=== PATIENT | male | born 1975 | race Caucasian/White ===

== ENCOUNTER 2017-05-10 10:53 | Emergency (ER) | payer SELFPAY ==
[2017-05-10 11:08] VITALS: BP 144/101; PULSE 89; TEMP 98.1; BMI 23.6
[2017-05-10] MEDS ORDERED: KETOROLAC TROMETHAMINE 30 MG/1 ML VIAL IVPUSH ONE (11:09)
[2017-05-10] MEDS ORDERED: ONDANSETRON 4 MG/2 ML VIAL IVPB ONE (11:09)
[2017-05-10] MEDS ORDERED: SODIUM CHLORIDE 1,000 ML IV STA (11:09)
[2017-05-10] MEDS ORDERED: DEXAMETHASONE SOD PHOSPHATE 10 MG/1 ML VIAL IVPUSH ONE (11:09)
--- NOTE | 2017-05-10 11:14 | PDOC ---
History of Present Illness - General Chief Complaint: Migraine Headache Stated Complaint: MIGRAINE Time Seen by Provider: 05/10/17 10:56 History Source: Patient Exam Limitations: No Limitations - History of Present Illness Initial Comments: 05/10/17 11:11 42 y/o male who suffers from migraine headaches 3-4x/day a year has seen a Neurologist in the past for Botox injections which did not work. Pain started this morning around 5 am. Denies neck pain, fever, fall or blurred vision. This feels like his typical migraines, it is not the worse headache of his life. No incontinence or numbness or weakness. Took Imitrex with no relief and two Benadryl. Timing/Duration: reports: 4-6 hours Severity: Yes: moderate Past History - Past Medical History Allergies/Adverse Reactions: Allergies Allergy/AdvReac Type Severity Reaction Status Date / Time prochlorperazine edisylate Allergy Verified 03/09/16 15:23 [From Compazine] prochlorperazine maleate Allergy Verified 03/09/16 15:23 [From Compazine] Home Medications: Ambulatory Orders Sumatriptan Succinate [Imitrex -] 100 mg PO ASDIR 06/27/14 Diphenhydramine [Benadryl -] 50 mg PO TID PRN #20 capsule 07/10/15 Alprazolam [Xanax] 0.5 mg PO BID PRN #4 tablet MDD 2 tabs 08/04/15 Codeine/Butalbital/ASA/Caffein [Fiorinal with Codeine #3 Cap] 1 each PO BID #6 capsule MDD 2 05/10/17 Codeine/Butalbital/ASA/Caffein [Fiorinal with Codeine #3 Cap] 1 each PO BID #6 capsule MDD 2 05/10/17 COPD: No Other medical history: MIGRAINE - Suicide/Smoking/Psychosocial Hx Smoking Status: Yes Smoking History: Former smoker Have you smoked in the past 12 months: No Number of Cigarettes Smoked Daily: 0 If you are a former smoker, when did you quit?: 2010 Information on smoking cessation initiated: No Hx Alcohol Use: No Drug/Substance Use Hx: Yes Substance Use Type: Alcohol, Cocaine, Prescribed, Tranquilizers Review of Systems - Review of Systems Able to Perform ROS?: Yes Is the patient limited Italian proficient: No Constitutional: No: Chills, Fever, Weakness HEENTM: No: Eye Pain, Blurred Vision Respiratory: No: Cough, Shortness of Breath Cardiac (ROS): No: Chest Pain ABD/GI: No: Nausea, Vomiting Musculoskeletal: No: Back Pain Neurological: Yes: Headache. No: Numbness, Paresthesia All Other Systems: Reviewed and Negative *Physical Exam - Vital Signs Last Vital Signs Temp Pulse Resp BP Pulse Ox 98.1 F 89 16 144/101 99 05/10/17 10:54 05/10/17 10:54 05/10/17 10:54 05/10/17 10:54 05/10/17 10:54 - Physical Exam General Appearance: Yes: Nourished, Appropriately Dressed, Mild Distress HEENT: positive: EOMI, KAVYA, Normal ENT Inspection, Normal Voice, Pharynx Normal Neck: positive: Trachea midline, Normal Thyroid, Supple. negative: Tender, Rigid, Carotid bruit Respiratory/Chest: positive: Lungs Clear, Normal Breath Sounds. negative: Chest Tender, Respiratory Distress Cardiovascular: positive: Regular Rhythm, Regular Rate, S1, S2. negative: Edema , JVD, Murmur Vascular Pulses: Femoral (R): 4+, Femoral (L): 4+, Carotid (R): 4+, Carotid (L) : 4+, Dorsalis-Pedis (R): 4+, Doralis-Pedis (L): 4+ Gastrointestinal/Abdominal: positive: Normal Bowel Sounds, Flat, Soft. negative : Tender, Organomegaly, Pulsatile Mass Lymphatic: negative: Adenopathy, Tenderness, Other Musculoskeletal: positive: Normal Inspection. negative: CVA Tenderness Extremity: positive: Normal Capillary Refill, Normal Inspection, Normal Range of Motion Integumentary: positive: Normal Color, Dry, Warm Neurologic: positive: communication electronic technician II-XII NML intact, Fully Oriented, Alert, Normal Mood/ Affect, Normal Response, Motor Strength 5/5 (strength 5+/5 b/l in UE and LE, no focal deficits noted, no menigingeal sign, neg Brudinsky and Kernig's sign) Progress Note - Progress Note Progress Note: Pt appears to have a migraine, will treat with IVF and medications. Pt is in agreement with plan Pt is feeling much better, headache has resolved Advised follow up with his Neurologist If worsen return to ER *DC/Admit/Observation/Transfer Diagnosis at time of Disposition: Migraine Qualifiers: Migraine type: unspecified Status migrainosus presence: with status migrainosus Intractability: not intractable Qualified Code(s): G43.901 - Migraine, unspecified, not intractable, with status migrainosus - Discharge Dispostion Disposition: HOME Condition at time of disposition: Good Admit: No - Referrals Referrals: Erci Willoughby [Primary Care Provider] - - Patient Instructions Printed Discharge Instructions: DI for Migraine Additional Instructions: Fiorinal/codeine 1 tab 2x/day as needed Fluids, rest, Motrin Follow up with Neurologist If worsen return to ER - Post Discharge Activity
[2017-05-10] MEDS ORDERED: ONDANSETRON 4 MG/2 ML VIAL ONE (11:38)
[2017-05-10] MEDS ORDERED: KETOROLAC TROMETHAMINE 30 MG/1 ML VIAL ONE (11:38)
[2017-05-10] MEDS ORDERED: DEXAMETHASONE SOD PHOSPHATE 10 MG/1 ML VIAL ONE (11:38)
[2017-05-10] MEDS ORDERED: HYDROmorphone HCL CARPU-JECT 1 MG/1 ML DISP.SYRIN IVPUSH ONE (12:34)
[2017-05-10] MEDS ORDERED: HYDROmorphone HCL CARPU-JECT 1 MG/1 ML DISP.SYRIN ONE (12:37)
== END 2017-05-10 13:38 | disposition home or self-care (01) ==
LOC: FER 10:53
PROC: 3E033NZ Introduction of Analgesics, Hypnotics, Sedatives into Peripheral Vein, Percutaneous Approach (ICD-10-PCS; principal; 2017-05-10)
PROC: 3E0333Z Introduction of Anti-inflammatory into Peripheral Vein, Percutaneous Approach (ICD-10-PCS; 2017-05-10)
PROC: 3E033GC Introduction of Other Therapeutic Substance into Peripheral Vein, Percutaneous Approach (ICD-10-PCS; 2017-05-10)
PROC: 3E0337Z Introduction of Electrolytic and Water Balance Substance into Peripheral Vein, Percutaneous Approach (ICD-10-PCS; 2017-05-10)
DX: G43.901 Migraine, unspecified, not intractable, with status migrainosus (principal)
CPT/HCPCS: 99282-25; J1100

== ENCOUNTER 2017-06-24 13:35 | Emergency (ER) | payer SELFPAY ==
--- NOTE | 2017-06-24 13:46 | PDOC ---
History of Present Illness - General History Source: Patient Exam Limitations: No Limitations - History of Present Illness Initial Comments: The patient is a 42 years old male with past medical history of chronic migraines, is present at the ED complaining of an episode of migraine since 7am. The patient reports similar episodes of migraines in the past with nothing unusual in the quality presented today. 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 The patient reports the past episodes were treated with triptan but denies taking any medication today. The patient reports symptoms of nausea, tingling of fingers and lips. The patient reports dehydration even after drinking water. Social History: the patient denies smoking, use of alcohol. The patient reports he did drugs several years ago but none recently. 06/24/17 15:12 <Gem Jorgensen - Last Filed: 06/24/17 16:38> <Cornell Fulton - Last Filed: 06/24/17 18:10> - General Chief Complaint: Pain Stated Complaint: SEVERE MIGRAINE HEADACHE Time Seen by Provider: 06/24/17 13:45 Past History <Gem Jorgensen - Last Filed: 06/24/17 16:38> - Past Medical History COPD: No - Suicide/Smoking/Psychosocial Hx Smoking Status: Yes Smoking History: Former smoker Have you smoked in the past 12 months: No Number of Cigarettes Smoked Daily: 0 If you are a former smoker, when did you quit?: 2010 Hx Alcohol Use: No Drug/Substance Use Hx: Yes Substance Use Type: Alcohol, Cocaine, Prescribed, Tranquilizers <Cornell Fulton - Last Filed: 06/24/17 18:10> - Past Medical History Allergies/Adverse Reactions: Allergies Allergy/AdvReac Type Severity Reaction Status Date / Time prochlorperazine edisylate Allergy Severe Verified 06/24/17 13:38 [From Compazine] prochlorperazine maleate Allergy Intermediate Verified 06/24/17 13:38 [From Compazine] Home Medications: Ambulatory Orders Acetaminophen/Caffeine/Butalb [Fioricet -] 1 tab PO Q6H #14 tablet MDD 3 Methocarbamol [Robaxin -] 750 mg PO Q8H #20 tablet 06/24/17 Sumatriptan Succinate 100 mg PO PRN 06/24/17 Review of Systems - Review of Systems Able to Perform ROS?: Yes Comments:: 06/24/17 15:12 Absent: fever, chills, diaphoresis, generalized weakness, malaise, loss of appetite HEENT: (+) headache Absent: rhinorrhea, nasal congestion, throat pain, throat swelling, difficulty swallowing, mouth swelling, ear pain, eye pain, visual Changes CARDIOVASCULAR: Absent: chest pain, syncope, palpitations, irregular heart rate, lightheadedness , peripheral edema RESPIRATORY: Absent: cough, shortness of breath, dyspnea with exertion, orthopnea, wheezing, stridor, hemoptysis GASTROINTESTINAL: Absent: abdominal pain, abdominal distension, nausea, vomiting, diarrhea, constipation, melena, hematochezia GENITOURINARY: Absent: dysuria, frequency, urgency, hesitancy, hematuria, flank pain, genital pain MUSCULOSKELETAL: Absent: myalgia, arthralgia, joint swelling SKIN: Absent: rash, itching, pallor HEMATOLOGIC/IMMUNOLOGIC: Absent: easy bleeding, easy bruising, lymphadenopathy, frequent infections ENDOCRINE: Absent: unexplained weight gain, unexplained weight loss, heat intolerance, cold intolerance NEUROLOGIC: (+) headache, slight tremors Absent:, focal weakness or paresthesias, dizziness, unsteady gait, seizure, mental status changes, bladder or bowel incontinence PSYCHIATRIC: Absent: anxiety, depression, suicidal or homicidal ideation, hallucinations. <Gem Jorgensen - Last Filed: 06/24/17 16:38> *Physical Exam - Vital Signs Last Vital Signs Temp Pulse Resp BP Pulse Ox 98.7 F 83 24 133/103 100 06/24/17 13:37 06/24/17 13:37 06/24/17 13:37 06/24/17 13:37 06/24/17 13:37 - Physical Exam Comments: GENERAL: Well developed, well nourished. Awake and alert. Mild uncomfortable. HEENT: Normocephalic, atraumatic. PERRLA, EOMI. No conjunctival pallor. Sclera are non- icteric. Moist mucous membranes. Oropharynx is clear. NECK: Supple. Flexible Full ROM. No JVD. Carotid pulses 2+ and symmetric, without bruits. No thyromegaly. No lymphadenopathy. CARDIOVASCULAR: Regular rate and rhythm. No murmurs, rubs, or gallops. Distal pulses are 2+ and symmetric. PULMONARY: No evidence of respiratory distress. Lungs clear to auscultation bilaterally. No wheezing, rales or rhonchi. ABDOMINAL: Soft. Non-tender. Non-distended. No rebound or guarding. No organomegaly. Normoactive bowel sounds. MUSCULOSKELETAL Normal range of motion at all joints. No bony deformities or tenderness. No CVA tenderness. EXTREMITIES: (+) Mild muscle spasm No cyanosis. No clubbing. No edema. No calf tenderness. SKIN: Warm and dry. Normal capillary refill. No rashes. No jaundice. 06/24/17 16:38 <Gem Jorgensen - Last Filed: 06/24/17 16:38> ED Treatment Course - Medications Given in the ED: ED Medications Discontinued Medications Generic Name Dose Route Start Last Admin Trade Name Freq PRN Reason Stop Dose Admin Diphenhydramine HCl 25 mg 06/24/17 14:28 06/24/17 14:51 Benadryl Injection - IVPUSH 06/24/17 14:29 25 mg ONCE ONE Administration Ketorolac Tromethamine 30 mg 06/24/17 14:29 06/24/17 14:54 Toradol Injection - IVPUSH 06/24/17 14:30 30 mg ONCE ONE Administration <Gem Jorgensen - Last Filed: 06/24/17 16:38> Medical Decision Making - Medical Decision Making The patient was observed hour by hour for the past 3 hours. He has improved, the pounding in the head has gone, muscle spasm has improved. The patient reports he still feels dehydrated. 06/24/17 16:40 <Gem Jorgensen - Last Filed: 06/24/17 16:38> *DC/Admit/Observation/Transfer - Attestations Scribe Attestion: 06/24/17 16:42 Documentation prepared by Gem Jorgensen, acting as medical transcriptionist for Cornell Fulton MD. <Gem Jorgensen - Last Filed: 06/24/17 16:38> - Discharge Dispostion Admit: No <Cornell Fulton - Last Filed: 06/24/17 18:10> Diagnosis at time of Disposition: Migraine Qualifiers: Migraine type: unspecified Status migrainosus presence: without status migrainosus Intractability: not intractable Qualified Code(s): G43.909 - Migraine, unspecified, not intractable, without status migrainosus - Discharge Dispostion Disposition: HOME Condition at time of disposition: Improved - Prescriptions Prescriptions: Acetaminophen/Caffeine/Butalb [Fioricet -] 1 tab PO Q6H #14 tablet MDD 3 Methocarbamol [Robaxin -] 750 mg PO Q8H #20 tablet - Patient Instructions Printed Discharge Instructions: Tension Headache Additional Instructions: Follow up with your doctor in the [place]
[2017-06-24 13:48] VITALS: TEMP 98.7; BMI 27.1
[2017-06-24] MEDS ORDERED: KETOROLAC TROMETHAMINE 30 MG/1 ML VIAL IVPUSH ONE (14:29)
[2017-06-24] MEDS ORDERED: SODIUM CHLORIDE 1,000 ML IV STA ×2 (14:29→17:08)
[2017-06-24] MEDS ORDERED: KETOROLAC TROMETHAMINE 30 MG/1 ML VIAL ONE (14:39)
[2017-06-24] MEDS ORDERED: CYCLOBENZAPRINE HCL 10 MG TABLET (FP) PO ONE (15:46)
[2017-06-24] MEDS ORDERED: CYCLOBENZAPRINE HCL 10 MG TABLET (FP) ONE (15:49)
[2017-06-24] MEDS ORDERED: ONDANSETRON 4 MG/2 ML VIAL IVPUSH ONE (16:40)
[2017-06-24] MEDS ORDERED: ACETAMINOPHEN 1000 MG/100 ML VIAL (NON FORMULARY) IVPB ONE (16:40)
[2017-06-24] MEDS ORDERED: ONDANSETRON 4 MG/2 ML VIAL ONE (17:04)
[2017-06-24] MEDS ORDERED: ACETAMINOPHEN INJECTION 100 ML IVPB ONE (17:04)
[2017-06-24 18:25] VITALS: BP 131/91; PULSE 64
== END 2017-06-24 18:29 | disposition home or self-care (01) ==
LOC: FER 13:35
PROC: 3E033NZ Introduction of Analgesics, Hypnotics, Sedatives into Peripheral Vein, Percutaneous Approach (ICD-10-PCS; principal; 2017-06-24)
PROC: 3E033GC Introduction of Other Therapeutic Substance into Peripheral Vein, Percutaneous Approach (ICD-10-PCS; 2017-06-24)
PROC: 3E0333Z Introduction of Anti-inflammatory into Peripheral Vein, Percutaneous Approach (ICD-10-PCS; 2017-06-24)
PROC: 3E0337Z Introduction of Electrolytic and Water Balance Substance into Peripheral Vein, Percutaneous Approach (ICD-10-PCS; 2017-06-24)
DX: G43.909 Migraine, unspecified, not intractable, without status migrainosus (principal); Z87.891 Personal history of nicotine dependence
CPT/HCPCS: 99282-25; J0131; J7030

== ENCOUNTER 2018-01-05 04:47 | Emergency (ER) | payer SELFPAY ==
[2018-01-05] MEDS ORDERED: ONDANSETRON *ODT* 4 MG TABLET SL ONE (05:01)
[2018-01-05] MEDS ORDERED: KETOROLAC TROMETHAMINE 60 MG/2 ML VIAL IM ONE (05:01)
--- NOTE | 2018-01-05 05:01 | PDOC ---
History of Present Illness - General Chief Complaint: Migraine Headache Stated Complaint: HEADACHE History Source: Patient Exam Limitations: No Limitations - History of Present Illness Initial Comments: 01/05/18 05:02 This is a 42-year-old male who comes in complaining of his migraine. He has a history of migraines. Patient said he is usually able to abort migraines at home but wasn't able to do that at this time. For evaluation and treatment. Patient is complaining of associated photophobia and denies any fevers or chills patient denies any neck stiffness. PAST MEDICAL HISTORY: no significant history PAST SURGICAL HISTORY: no significant history FAMILY HISTORY: no pertinant history SOCIAL HISTORY: Pt lives with family and is employed. MEDICATIONS: reviewed ALLERGIES: As per nursing notes ROS General: No fevers or chills, no weakness, no weight loss HEENT: No change in vision. No sore throat,. No ear pain CardioVascular: No chest pain or shortness of breath Respiratory:No cough, or wheezing. Gastrointestinal: no nausea, vomiting, diarrhea or constipation, No rectal bleeding Genitourinary: No dysuria, hematuria, or frequency Musculoskeletal: . No joint pain or swelling Neurologic: + headache, no vertigo, dizziness or loss of consciousness Psychiatric: nor depression Skin: No rashes or easy bruising Endocrine: no increased thirst or abnormal weight change Allergic: no skin or latex allergy All other systems reviewed and normal GENERAL: The patient is awake, alert, and fully oriented, in no acute distress. HEAD: Normal with no signs of trauma. EARS: Bilateral ears are normal with normal external canal. and tympanic membranes. EYES: Pupils equal, round and reactive to light, extraocular movements intact, sclera anicteric, conjunctiva clear. EXTREMITIES: Normal range of motion, no edema. NEUROLOGICAL: Normal speech, normal gait. grossly intact PSYCH: Normal mood, normal affect. SKIN: Warm, Dry, normal turgor, no rashes or lesions noted. 01/05/18 06:56 -7:00 Headache improved but not completely resolved. Patient discharged home. Past History - Past Medical History Allergies/Adverse Reactions: Allergies Allergy/AdvReac Type Severity Reaction Status Date / Time prochlorperazine edisylate AdvReac Intermediate Verified 01/05/18 04:49 [From Compazine] Home Medications: Ambulatory Orders Acetaminophen/Caffeine/Butalb [Fioricet -] 1 tab PO Q6H #14 tablet MDD 3 Sumatriptan Succinate 100 mg PO PRN 06/24/17 COPD: No - Suicide/Smoking/Psychosocial Hx Smoking Status: Yes Smoking History: Former smoker Have you smoked in the past 12 months: No Number of Cigarettes Smoked Daily: 0 If you are a former smoker, when did you quit?: 2010 Hx Alcohol Use: No Drug/Substance Use Hx: Yes Substance Use Type: Alcohol, Cocaine, Prescribed, Tranquilizers *DC/Admit/Observation/Transfer Diagnosis at time of Disposition: Migraine Qualifiers: Migraine type: unspecified Status migrainosus presence: without status migrainosus Intractability: not intractable Qualified Code(s): G43.909 - Migraine, unspecified, not intractable, without status migrainosus - Discharge Dispostion Disposition: HOME Condition at time of disposition: Stable - Referrals Referrals: Eric Willoughby [Primary Care Provider] - - Patient Instructions Additional Instructions: Return to the emergency department immediately with ANY new, persistent or worsening symptoms. Continue any medications as previously prescribed by your physician. You should follow up with your primary doctor as soon as possible regarding today's emergency department visit. . Please make sure your doctor reviews the results of your emergency evaluation. Thank you for coming to the Emergency Department today for your care. It was a pleasure to see you today. Please note that your evaluation is INCOMPLETE until you follow-up with your doctor. - Post Discharge Activity
[2018-01-05 05:06] VITALS: BP 128/68; PULSE 87; TEMP 97.5; BMI 27.1
[2018-01-05] MEDS ORDERED: ONDANSETRON *ODT* 4 MG TABLET ONE (05:07)
[2018-01-05] MEDS ORDERED: KETOROLAC TROMETHAMINE 60 MG/2 ML VIAL ONE (05:07)
[2018-01-05] MEDS ORDERED: ACETAMINOPHEN/CAFFEINE/BUTALBITAL 1 TAB PO ONE (06:58)
[2018-01-05] MEDS ORDERED: ACETAMINOPHEN/CAFFEINE/BUTALBITAL 1 TAB ONE (07:01)
== END 2018-01-05 07:06 | disposition home or self-care (01) ==
LOC: FER 04:47
PROC: 3E023GC Introduction of Other Therapeutic Substance into Muscle, Percutaneous Approach (ICD-10-PCS; principal; 2018-01-05)
PROC: 3E0233Z Introduction of Anti-inflammatory into Muscle, Percutaneous Approach (ICD-10-PCS; 2018-01-05)
DX: G43.909 Migraine, unspecified, not intractable, without status migrainosus (principal); Z87.891 Personal history of nicotine dependence
CPT/HCPCS: 99281-25; Q0162

== ENCOUNTER 2018-01-11 21:51 | Emergency (ER) | payer SELFPAY ==
[2018-01-11] MEDS ORDERED: KETOROLAC TROMETHAMINE 60 MG/2 ML VIAL ONE (21:58)
[2018-01-11 22:10] VITALS: BP 111/82; PULSE 83; BMI 26.4
--- NOTE | 2018-01-11 22:17 | PDOC ---
History of Present Illness - History of Present Illness Initial Comments: This patient is a 42 year old male with PMHx of migraines, who presents with migraine headache. Patient states that he gets headaches 4 days out of the week on average. He states that his headache becomes this bad 2-3 time a year. He states that he takes Imitrex normally and took that and Benadryl this morning with no relief. He states that he was able to drink some water and eat a banana this morning. He reports some photophobia and reports pain and congestion behind his right eye that radiates to the back of his head. He states that usually IV benadryl, zofran and fluids helps. He states that he doesnt have health insurance and doesnt have a regular doctor or neurologist. ROS General: No fevers or chills, no weakness, no weight loss HEENT: No change in vision. No sore throat, No ear pain Cardiovascular: No chest pain or shortness of breath Respiratory:No cough, or wheezing. Gastrointestinal: +nausea, no vomiting, diarrhea or constipation, No rectal bleeding Genitourinary: No dysuria, hematuria, or frequency Musculoskeletal: No joint or muscle pain or swelling Neurologic: +headache, no vertigo, dizziness or loss of consciousness Psychiatric: No depression Skin: No rashes or easy bruising Endocrine: No increased thirst or abnormal weight change Allergic: No skin or latex allergy All other systems reviewed and normal PE General: Well-nourished well-developed individual, in moderate distress. Appears very uncomfortable. HEENT: Normal, tonsils normal, no erythema or exudate. Photophobia. Neck: Supple, no meningeal signs. Eyes:Pupils equal reactive and round, extraocular motion intact Chest: Nontender to palpation Extremities: Warm, dry, no cyanosis, clubbing, or edema Skin: No rashes Neuro: Alert and oriented x3, nonfocal exam, grossly intact, normal gait Psych: Normal mood and affect <Rasheeda Jerome - Last Filed: 01/11/18 23:14> - General History Source: Patient Exam Limitations: No Limitations - History of Present Illness Initial Comments: 01/12/18 00:15 A portion of this note was documented by scribe services under my direction. I have reviewed the details of the note, within reason, and agree with the documentation. The case summary and management plan written by me. Assessment and plan: This is a 42-year-old male who comes in complaining of a migraine headache. Patient was given Toradol, Zofran, IV fluids, Benadryl, Fioricet with improvement of his pain but not complete resolution. Patient said that the only thing that will make it better is some Dilaudid however he did not have any way of getting home if I gave him the Dilaudid so a prescription for 2 tablets of Dilaudid was sent to his pharmacy. Patient will pick it up on his way home and take it once he gets home. <aPtrice Gutierres I - Last Filed: 01/12/18 00:16> - General Chief Complaint: Migraine Headache Stated Complaint: MIGRAINE Time Seen by Provider: 01/11/18 22:12 Past History <Rasheeda Jerome - Last Filed: 01/11/18 23:14> - Past Medical History COPD: No Other medical history: MIGRAINES - Suicide/Smoking/Psychosocial Hx Smoking Status: Yes Smoking History: Never smoked Have you smoked in the past 12 months: No Number of Cigarettes Smoked Daily: 0 If you are a former smoker, when did you quit?: 2010 Information on smoking cessation initiated: No Hx Alcohol Use: No Drug/Substance Use Hx: No Substance Use Type: Alcohol, Cocaine, Prescribed, Tranquilizers <Patrice Gutierres I - Last Filed: 01/12/18 00:16> - Past Medical History Allergies/Adverse Reactions: Allergies Allergy/AdvReac Type Severity Reaction Status Date / Time prochlorperazine edisylate AdvReac Intermediate Verified 01/11/18 21:54 [From Compazine] Home Medications: Ambulatory Orders Sumatriptan Succinate 100 mg PO PRN 06/24/17 Acetaminophen/Caffeine/Butalb [Fioricet -] 1 tab PO Q6H #14 tablet MDD 3 HYDROmorphone [Dilaudid -] 4 mg PO ONCE PRN #2 tablet MDD 2 01/12/18 Review of Systems - Review of Systems Comments:: 01/11/18 22:44 see HPI <Rasheeda Jerome - Last Filed: 01/11/18 23:14> *Physical Exam - Vital Signs Last Vital Signs Temp Pulse Resp BP Pulse Ox 83 22 H 111/82 100 01/11/18 21:56 01/11/18 21:56 01/11/18 21:56 01/11/18 21:56 - Physical Exam Comments: 01/11/18 22:44 see HPI <Rasheeda Jerome - Last Filed: 01/11/18 23:14> - Vital Signs Last Vital Signs Temp Pulse Resp BP Pulse Ox 83 22 H 111/82 100 01/11/18 21:56 01/11/18 21:56 01/11/18 21:56 01/11/18 21:56 <Patrice Gutierres I - Last Filed: 01/12/18 00:16> *DC/Admit/Observation/Transfer - Attestations Scribe Attestion: 01/11/18 22:44 Documentation prepared by Rasheeda Jerome, acting as biomedical engineering supervisor for Patrice Gutierres MD. <Rasheeda Jerome - Last Filed: 01/11/18 23:14> - Discharge Dispostion Decision to Admit order: No <Patrice Gutierres I - Last Filed: 01/12/18 00:16> Diagnosis at time of Disposition: Migraine Qualifiers: Migraine type: unspecified Status migrainosus presence: without status migrainosus Intractability: not intractable Qualified Code(s): G43.909 - Migraine, unspecified, not intractable, without status migrainosus - Discharge Dispostion Disposition: HOME Condition at time of disposition: Stable - Prescriptions Prescriptions: HYDROmorphone [Dilaudid -] 4 mg PO ONCE PRN #2 tablet MDD 2 PRN Reason: Pain - Patient Instructions Additional Instructions: Go to the pharmacy and get the prescription for Dilaudid filled. I gave you 2 tablets take 1 when you get home and you can repeated in 4 hours if he still have any pain. Return to the emergency department immediately with ANY new, persistent or worsening symptoms. Continue any medications as previously prescribed by your physician. You should follow up with your primary doctor as soon as possible regarding today's emergency department visit. . Please make sure your doctor reviews the results of your emergency evaluation. Thank you for coming to the Emergency Department today for your care. It was a pleasure to see you today. Please note that your evaluation is INCOMPLETE until you follow-up with your doctor.
[2018-01-11] MEDS ORDERED: ACETAMINOPHEN/CAFFEINE/BUTALBITAL 1 TAB PO ONE (22:18)
[2018-01-11] MEDS ORDERED: ONDANSETRON 4 MG/2 ML VIAL IVPB ONE (22:19)
[2018-01-11] MEDS ORDERED: SODIUM CHLORIDE 1,000 ML IV ONE (22:19)
[2018-01-11] MEDS ORDERED: KETOROLAC TROMETHAMINE 30 MG/1 ML VIAL ONE (22:56)
[2018-01-11] MEDS ORDERED: ONDANSETRON 4 MG/2 ML VIAL ONE ×2 (22:57→23:05)
[2018-01-11] MEDS ORDERED: KETOROLAC TROMETHAMINE 30 MG/1 ML VIAL IVPUSH ONE (23:06)
[2018-01-11] MEDS ORDERED: ACETAMINOPHEN/CAFFEINE/BUTALBITAL 1 TAB ONE (23:44)
== END 2018-01-12 00:19 | disposition home or self-care (01) ==
LOC: FER 21:51
PROC: 3E0337Z Introduction of Electrolytic and Water Balance Substance into Peripheral Vein, Percutaneous Approach (ICD-10-PCS; principal; 2018-01-11)
PROC: 3E033GC Introduction of Other Therapeutic Substance into Peripheral Vein, Percutaneous Approach (ICD-10-PCS; 2018-01-11)
PROC: 3E0333Z Introduction of Anti-inflammatory into Peripheral Vein, Percutaneous Approach (ICD-10-PCS; 2018-01-11)
DX: G43.909 Migraine, unspecified, not intractable, without status migrainosus (principal)
CPT/HCPCS: 99281-25; J7030

== ENCOUNTER 2018-05-30 19:35 | Emergency (ER) | payer SELFPAY ==
--- NOTE | 2018-05-30 19:39 | PDOC ---
History of Present Illness - History of Present Illness Initial Comments: 05/30/18 19:57 This patient is a 43 year old male with PMHx of migraines, who presents with migraine headache today. Patient states he took Imitrex and Xanax this morning with no relief. He has been seen in this ED multiple times for similar headaches. The patient denies chest pain, shortness of breath, and dizziness. Denies fever, chills, nausea, vomit, diarrhea and constipation. Denies dysuria, frequency, urgency and hematuria. Allergies: NKA Past surgical history: None reported. Social history: No reported alcohol, drug or cigarette use. ROS General: No fevers or chills, no weakness, no weight loss HEENT: No change in vision. No sore throat, No ear pain Cardiovascular: No chest pain or shortness of breath Respiratory:No cough, or wheezing. Gastrointestinal: no nausea, no vomiting, diarrhea or constipation, No rectal bleeding Genitourinary: No dysuria, hematuria, or frequency Musculoskeletal: No joint or muscle pain or swelling Neurologic: +headache, no vertigo, dizziness or loss of consciousness Psychiatric: No depression Skin: No rashes or easy bruising Endocrine: No increased thirst or abnormal weight change Allergic: No skin or latex allergy All other systems reviewed and normal PE General: Well-nourished well-developed individual, in moderate distress. Appears very uncomfortable. HEENT: Normal, tonsils normal, no erythema or exudate. Photophobia. Neck: Supple, no meningeal signs. Eyes:Pupils equal reactive and round, extraocular motion intact Chest: Nontender to palpation Extremities: Warm, dry, no cyanosis, clubbing, or edema Skin: No rashes Neuro: Alert and oriented x3, nonfocal exam, grossly intact, normal gait Psych: Normal mood and affect <Kaur Vidales - Last Filed: 05/30/18 19:57> - General History Source: Patient Exam Limitations: No Limitations - History of Present Illness Initial Comments: A portion of this note was documented by scribe services under my direction. I have reviewed the details of the note, within reason, and agree with the documentation with the following case summary and management plan written by me. Patient treated in the ED. Nursing notes are reviewed and incorporated into the medical decision-making. Vital signs reviewed. Assessment plan: This is a 43-year-old male who comes in 2-3 times a year for severe migraines. Patient was seen by me the last 2 times he was in the ED. Patient requires IV medication and usually feels better and goes home. 05/30/18 20:33 Reevaluation: Patient says he is feeling FIDGETY" after receiving the medication. This could possibly due to the reglan. We'll give patient some Xanax as it more likely is due to his anxiety 05/30/18 21:07 Patient's headache is much improved however he still having some muscle soreness secondary to his being so tense for 2 days. Patient has a ride that will take him home. Patient discharged home Prescription sent to the pharmacy for 2 Dilantin tablets that patient can take if he needs to once he gets home 05/30/18 21:43 <Patrice Gutierres I - Last Filed: 05/30/18 21:44> - General Chief Complaint: Migraine Headache Stated Complaint: MIGRAINE Time Seen by Provider: 05/30/18 19:38 Past History <Kaur Vidales - Last Filed: 05/30/18 19:57> - Past Medical History COPD: No - Suicide/Smoking/Psychosocial Hx Smoking Status: Yes Smoking History: Never smoked Have you smoked in the past 12 months: No Number of Cigarettes Smoked Daily: 0 If you are a former smoker, when did you quit?: 2010 Hx Alcohol Use: No Drug/Substance Use Hx: No Substance Use Type: Alcohol, Cocaine, Prescribed, Tranquilizers <Patrice Gutierres I - Last Filed: 05/30/18 21:44> - Past Medical History Allergies/Adverse Reactions: Allergies Allergy/AdvReac Type Severity Reaction Status Date / Time prochlorperazine edisylate AdvReac Intermediate Verified 05/30/18 19:46 [From Compazine] Home Medications: Ambulatory Orders Sumatriptan Succinate 100 mg PO PRN 06/24/17 Alprazolam [Xanax] 1 mg PO Q12H PRN #10 tablet MDD 2 05/30/18 HYDROmorphone [Dilaudid -] 4 mg PO DAILY PRN #2 tablet MDD 2 05/30/18 Sumatriptan Succinate 100 mg PO BID PRN #20 tablet MDD 2 05/30/18 *DC/Admit/Observation/Transfer - Attestations Scribe Attestion: 05/30/18 19:58 Documentation prepared by Kaur Vidales, acting as certified medical aide for Patrice Gutierres MD. <Kaur Vidales - Last Filed: 05/30/18 19:57> - Discharge Dispostion Decision to Admit order: No <Patrice Gutierres I - Last Filed: 05/30/18 21:44> Diagnosis at time of Disposition: Neck muscle spasm Migraine Qualifiers: Migraine type: unspecified Status migrainosus presence: without status migrainosus Intractability: not intractable Qualified Code(s): G43.909 - Migraine, unspecified, not intractable, without status migrainosus - Discharge Dispostion Disposition: HOME Condition at time of disposition: Stable - Prescriptions Prescriptions: Alprazolam [Xanax] 1 mg PO Q12H PRN #10 tablet MDD 2 PRN Reason: Anxiety HYDROmorphone [Dilaudid -] 4 mg PO DAILY PRN #2 tablet MDD 2 PRN Reason: Pain Sumatriptan Succinate 100 mg PO BID PRN #20 tablet MDD 2 PRN Reason: Pain - Patient Instructions Additional Instructions: Return to the emergency department immediately with ANY new, persistent or worsening symptoms. Continue any medications as previously prescribed by your physician. You should follow up with your primary doctor as soon as possible regarding today's emergency department visit. . Please make sure your doctor reviews the results of your emergency evaluation. Thank you for coming to the Emergency Department today for your care. It was a pleasure to see you today. Please note that your evaluation is INCOMPLETE until you follow-up with your doctor. Take the prescription for sumatriptan as prescribed, For anxiety and muscle spasm U can take the Xanax 1 tablet a day as needed
[2018-05-30] MEDS ORDERED: ACETAMINOPHEN/CAFFEINE/BUTALBITAL 1 TAB PO ONE (19:45)
[2018-05-30] MEDS ORDERED: METOCLOPRAMIDE HCL INJECTION 10 MG/2 ML VIAL IVPUSH ONE (19:46)
[2018-05-30] MEDS ORDERED: SODIUM CHLORIDE 1,000 ML IV ONE (19:47)
[2018-05-30] MEDS ORDERED: KETOROLAC TROMETHAMINE 30 MG/1 ML VIAL IVPUSH ONE (19:47)
[2018-05-30] MEDS ORDERED: ACETAMINOPHEN/CAFFEINE/BUTALBITAL 1 TAB ONE (20:03)
[2018-05-30] MEDS ORDERED: METOCLOPRAMIDE HCL INJECTION 10 MG/2 ML VIAL ONE (20:03)
[2018-05-30] MEDS ORDERED: KETOROLAC TROMETHAMINE 30 MG/1 ML VIAL ONE (20:17)
[2018-05-30] MEDS ORDERED: ALPRAZolam 1 MG TABLET PO PRN (20:32)
[2018-05-30] MEDS ORDERED: ALPRAZolam 0.25 MG TABLET ONE (20:33)
[2018-05-30 20:43] VITALS: TEMP 98.3; BMI 27.6
[2018-05-30] MEDS ORDERED: HYDROmorphone HCL CARPU-JECT 1 MG/1 ML DISP.SYRIN IVPUSH STA (21:06)
[2018-05-30 21:29] VITALS: BP 99/61; PULSE 88
== END 2018-05-30 21:35 | disposition home or self-care (01) ==
LOC: FER 19:35
PROC: 3E033GC Introduction of Other Therapeutic Substance into Peripheral Vein, Percutaneous Approach (ICD-10-PCS; principal; 2018-05-30)
PROC: 3E0333Z Introduction of Anti-inflammatory into Peripheral Vein, Percutaneous Approach (ICD-10-PCS; 2018-05-30)
PROC: 3E0337Z Introduction of Electrolytic and Water Balance Substance into Peripheral Vein, Percutaneous Approach (ICD-10-PCS; 2018-05-30)
DX: G43.909 Migraine, unspecified, not intractable, without status migrainosus (principal); M62.838 Other muscle spasm; Z87.891 Personal history of nicotine dependence
CPT/HCPCS: 99281-25; J7030

== ENCOUNTER 2018-11-29 22:48 | Emergency (ER) | payer SELFPAY ==
--- NOTE | 2018-11-29 22:51 | PDOC ---
History of Present Illness - General Chief Complaint: Migraine Headache Stated Complaint: MIGRAINE Time Seen by Provider: 11/29/18 22:50 History Source: Patient Exam Limitations: No Limitations - History of Present Illness Initial Comments: 11/29/18 22:57 This is a 43-year-old male who comes in complaining of his typical migraine. Patient comes in 2-3 times a year for acute on manageable migraines. Patient does take sumatriptan at home for his migraine which she said he took. Patient denies any fever, chills, neck stiffness. Patient denies any nausea vomiting. I seen patient on multiple occasions for similar symptoms. Allergies: as per nursing notes Past Medical History: none Social history: Lives with family. No smoking. No alcohol. No illicit drugs. Surgical history: None General: No fevers or chills, no weakness, no weight loss HEENT: No change in vision. No sore throat,. No ear pain CardioVascular: no chest discomfort. No shortness of breath Respiratory:No cough, or wheezing. Gastrointestinal: no nausea, vomiting, diarrhea or constipation, No rectal bleeding Genitourinary: No dysuria, hematuria, or frequency Musculoskeletal: No joint or muscle pain or swelling Neurologic: No headache, vertigo, dizziness or loss of consciousness Psychiatric: nor depression Skin: No rashes or easy bruising Endocrine: no increased thirst or abnormal weight change Allergic: no skin or latex allergy All other systems reviewed and normal Exam: GENERAL: The patient is awake, alert, and fully oriented, in moderate distress HEAD: Normal with no signs of trauma. EYES: Pupils equal, round and reactive to light, extraocular movements intact, sclera anicteric, conjunctiva clear. EXTREMITIES:atraumatic, Normal range of motion, no edema. NEUROLOGICAL: Normal speech, normal gait. PSYCH: Normal mood, normal affect. SKIN: Warm, Dry, normal turgor, no rashes or lesions noted. Patient given IV Toradol, Reglan, and Benadryl and Valium. Patient has a ride home and will follow-up with his primary care doctor Past History - Past Medical History Allergies/Adverse Reactions: Allergies Allergy/AdvReac Type Severity Reaction Status Date / Time prochlorperazine edisylate AdvReac Intermediate Verified 11/29/18 22:49 [From Compazine] Home Medications: Ambulatory Orders Sumatriptan Succinate 100 mg PO PRN 06/24/17 Sumatriptan Succinate 100 mg PO BID PRN #20 tablet MDD 2 05/30/18 COPD: No - Suicide/Smoking/Psychosocial Hx Smoking Status: Yes Smoking History: Never smoked Have you smoked in the past 12 months: No Number of Cigarettes Smoked Daily: 0 If you are a former smoker, when did you quit?: 2010 Hx Alcohol Use: No Drug/Substance Use Hx: No Substance Use Type: Alcohol, Cocaine, Prescribed, Tranquilizers *DC/Admit/Observation/Transfer Diagnosis at time of Disposition: Migraine Qualifiers: Migraine type: unspecified Status migrainosus presence: without status migrainosus Intractability: not intractable Qualified Code(s): G43.909 - Migraine, unspecified, not intractable, without status migrainosus - Discharge Dispostion Disposition: HOME Condition at time of disposition: Stable Decision to Admit order: No - Referrals - Patient Instructions Additional Instructions: Return to the emergency department immediately with ANY new, persistent or worsening symptoms. Continue any medications as previously prescribed by your physician. You should follow up with your primary doctor as soon as possible regarding today's emergency department visit. . Please make sure your doctor reviews the results of your emergency evaluation. Thank you for coming to the Emergency Department today for your care. It was a pleasure to see you today. Please note that your evaluation is INCOMPLETE until you follow-up with your doctor. - Post Discharge Activity
[2018-11-29 22:55] VITALS: TEMP 97.9; BMI 27.1
[2018-11-29] MEDS ORDERED: KETOROLAC TROMETHAMINE 30 MG/1 ML VIAL IVPUSH ONE (22:55)
[2018-11-29] MEDS ORDERED: METOCLOPRAMIDE HCL INJECTION 10 MG/2 ML VIAL IVPUSH ONE (22:55)
[2018-11-29] MEDS ORDERED: diazePAM CARPU-JECT 10 MG/2 ML DISP.SYRIN IVPUSH ONE (22:56)
[2018-11-29] MEDS ORDERED: METOCLOPRAMIDE HCL INJECTION 10 MG/2 ML VIAL ONE (23:02)
[2018-11-29] MEDS ORDERED: KETOROLAC TROMETHAMINE 30 MG/1 ML VIAL ONE (23:02)
[2018-11-29] MEDS ORDERED: diazePAM 2 MG TABLET ONE (23:13)
[2018-11-29] MEDS ORDERED: diazePAM 2 MG TABLET PO ONE (23:14)
[2018-11-29] MEDS ORDERED: HYDROmorphone HCL CARPU-JECT 1 MG/1 ML DISP.SYRIN IVPUSH ONE (23:39)
[2018-11-29] MEDS ORDERED: HYDROmorphone HCL CARPU-JECT 1 MG/1 ML DISP.SYRIN ONE (23:41)
[2018-11-30 00:08] VITALS: BP 117/73; PULSE 69
== END 2018-11-30 00:13 | disposition home or self-care (01) ==
LOC: FER 22:48
PROC: 3E0333Z Introduction of Anti-inflammatory into Peripheral Vein, Percutaneous Approach (ICD-10-PCS; principal; 2018-11-29)
PROC: 3E033NZ Introduction of Analgesics, Hypnotics, Sedatives into Peripheral Vein, Percutaneous Approach (ICD-10-PCS; 2018-11-29)
PROC: 3E033GC Introduction of Other Therapeutic Substance into Peripheral Vein, Percutaneous Approach (ICD-10-PCS; 2018-11-29)
DX: G43.909 Migraine, unspecified, not intractable, without status migrainosus (principal)
CPT/HCPCS: 99282-25

== ENCOUNTER 2020-05-24 07:39 | Emergency (ER) | payer SELFPAY ==
[2020-05-24 07:47] VITALS: BP 133/91; PULSE 77; TEMP 98.7; BMI 27.6
[2020-05-24] MEDS ORDERED: SODIUM CHLORIDE 1,000 ML IV ONE (08:26)
[2020-05-24] MEDS ORDERED: KETOROLAC TROMETHAMINE 30 MG/1 ML VIAL IVPUSH ONE (08:27)
[2020-05-24] MEDS ORDERED: ACETAMINOPHEN 1000 MG/100 ML VIAL (NON FORMULARY) IVPB ONE (08:27)
[2020-05-24] MEDS ORDERED: ONDANSETRON 4 MG/2 ML VIAL IVPUSH ONE (08:33)
[2020-05-24] MEDS ORDERED: ONDANSETRON 4 MG/2 ML VIAL ONE (08:37)
[2020-05-24] MEDS ORDERED: ACETAMINOPHEN INJECTION 100 ML IVPB ONE (08:37)
[2020-05-24] MEDS ORDERED: KETOROLAC TROMETHAMINE 30 MG/1 ML VIAL ONE (08:37)
[2020-05-24] MEDS ORDERED: METOCLOPRAMIDE HCL INJECTION 10 MG/2 ML VIAL IVPUSH ONE (08:49)
[2020-05-24 09:17] LABS: BASO % 0.8 % (0-2.0); HEMOGLOBIN 15.6 GM/dl (11.7-16.9); MONO % 9.8 % (3.8-10.2)
[2020-05-24 09:19] LABS: EOS % 4.2 % (0-4.5); HEMATOCRIT 44.8 % (35.4-49); LYMPH % 28.4 % (8-40); MCH 31.4 pg (25.7-33.7); MCHC 34.8 g/dl (32.0-35.9); MEAN CELL VOLUME 90.3 fl (80-96); MEAN PLT VOLUME 11.4 fl (7.5-11.1); NEUT % 56.8 % (42.8-82.8); PLATELET COUNT 177 K/MM3 (134-434); RBC 4.96 M/mm3 (4.00-5.60); RDW 12.4 % (11.9-15.9); WHITE BLOOD COUNT 4.7 K/mm3 (4.0-10.8)
[2020-05-24] MEDS ORDERED: METOCLOPRAMIDE HCL INJECTION 10 MG/2 ML VIAL ONE (09:20)
[2020-05-24 09:21] LABS: ALBUMIN 4.7 g/dl (3.4-5.0); BILIRUBIN,TOTAL 0.7 mg/dl (0.2-1); CALCIUM 9.6 mg/dl (8.5-10); POTASSIUM 4.4 mmol/L (3.5-5.1); TOT PROT 7.4 g/dl (6.4-8.2)
[2020-05-24] MEDS ORDERED: diazePAM CARPU-JECT 10 MG/2 ML DISP.SYRIN IVPUSH ONE (10:04)
[2020-05-24] MEDS ORDERED: DEXAMETHASONE SOD PHOSPHATE 10 MG/1 ML VIAL IVPUSH ONE (10:10)
[2020-05-24] MEDS ORDERED: DEXAMETHASONE SOD PHOSPHATE 10 MG/1 ML VIAL ONE (10:12)
[2020-05-24] MEDS ORDERED: diazePAM CARPU-JECT 10 MG/2 ML DISP.SYRIN ONE (10:12)
[2020-05-24] MEDS ORDERED: HYDROmorphone HCL CARPU-JECT 1 MG/1 ML DISP.SYRIN IVPUSH ONE (11:26)
[2020-05-24] MEDS ORDERED: HYDROmorphone HCL/PF 1 MG/ML VIAL ONE (11:32)
== END 2020-05-24 12:39 | disposition home or self-care (01) ==
LOC: FER 07:39
PROC: 3E0333Z Introduction of Anti-inflammatory into Peripheral Vein, Percutaneous Approach (ICD-10-PCS; principal; 2020-05-24)
PROC: 3E033GC Introduction of Other Therapeutic Substance into Peripheral Vein, Percutaneous Approach (ICD-10-PCS; 2020-05-24)
PROC: 3E033GC Introduction of Other Therapeutic Substance into Peripheral Vein, Percutaneous Approach (ICD-10-PCS; 2020-05-24)
PROC: 3E033GC Introduction of Other Therapeutic Substance into Peripheral Vein, Percutaneous Approach (ICD-10-PCS; 2020-05-24)
PROC: 3E033NZ Introduction of Analgesics, Hypnotics, Sedatives into Peripheral Vein, Percutaneous Approach (ICD-10-PCS; 2020-05-24)
PROC: 3E0333Z Introduction of Anti-inflammatory into Peripheral Vein, Percutaneous Approach (ICD-10-PCS; 2020-05-24)
PROC: 3E033GC Introduction of Other Therapeutic Substance into Peripheral Vein, Percutaneous Approach (ICD-10-PCS; 2020-05-24)
PROC: 3E033GC Introduction of Other Therapeutic Substance into Peripheral Vein, Percutaneous Approach (ICD-10-PCS; 2020-05-24)
PROC: 3E0337Z Introduction of Electrolytic and Water Balance Substance into Peripheral Vein, Percutaneous Approach (ICD-10-PCS; 2020-05-24)
DX: G44.209 Tension-type headache, unspecified, not intractable (principal)
CPT/HCPCS: 36415; 80053; 85025; 99284-25; J0131; J1100

== ENCOUNTER 2020-10-12 05:46 | Emergency (ER) | payer SELFPAY ==
[2020-10-12 05:56] VITALS: BP 142/92; PULSE 89; TEMP 98.7; BMI 27.6
[2020-10-12] MEDS ORDERED: KETOROLAC TROMETHAMINE 60 MG/2 ML VIAL IM ONE (06:00)
[2020-10-12] MEDS ORDERED: METOCLOPRAMIDE HCL INJECTION 10 MG/2 ML VIAL IM ONE (06:00)
[2020-10-12] MEDS ORDERED: METOCLOPRAMIDE HCL INJECTION 10 MG/2 ML VIAL ONE (06:02)
[2020-10-12] MEDS ORDERED: KETOROLAC TROMETHAMINE 60 MG/2 ML VIAL ONE (06:02)
[2020-10-12] MEDS ORDERED: ALPRAZolam 1 MG TABLET PO PRN (06:53)
[2020-10-12] MEDS ORDERED: LORazepam 0.5 MG TABLET ONE (06:56)
[2020-10-12] MEDS ORDERED: ALPRAZolam 0.25 MG TABLET ONE (06:58)
== END 2020-10-12 07:04 | disposition home or self-care (01) ==
LOC: FER 05:46
PROC: 3E023GC Introduction of Other Therapeutic Substance into Muscle, Percutaneous Approach (ICD-10-PCS; principal; 2020-10-12)
PROC: 3E0233Z Introduction of Anti-inflammatory into Muscle, Percutaneous Approach (ICD-10-PCS; 2020-10-12)
PROC: 3E033NZ Introduction of Analgesics, Hypnotics, Sedatives into Peripheral Vein, Percutaneous Approach (ICD-10-PCS; 2020-10-12)
PROC: 3E033GC Introduction of Other Therapeutic Substance into Peripheral Vein, Percutaneous Approach (ICD-10-PCS; 2020-10-12)
DX: G43.909 Migraine, unspecified, not intractable, without status migrainosus (principal)
CPT/HCPCS: 99284-25

== ENCOUNTER 2023-01-05 07:31 | Emergency (ER) | payer OTHER ==
[2023-01-05] MEDS ORDERED: ONDANSETRON 4 MG/2 ML VIAL IVPB ONE (07:47)
[2023-01-05] MEDS ORDERED: ACETAMINOPHEN 1000 MG/100 ML BAG IVPB ONE (07:47)
[2023-01-05] MEDS ORDERED: SODIUM CHLORIDE 1,000 ML IV ONE (07:47)
[2023-01-05] MEDS ORDERED: KETOROLAC TROMETHAMINE 30 MG/1 ML VIAL IVPUSH ONE (07:47)
[2023-01-05 07:50] VITALS: BP 130/88; PULSE 87; RESP 16; TEMP 98.8; BMI 27.8
[2023-01-05] MEDS ORDERED: METOCLOPRAMIDE HCL INJECTION 10 MG/2 ML VIAL ONE (07:55)
[2023-01-05] MEDS ORDERED: KETOROLAC TROMETHAMINE 30 MG/1 ML VIAL ONE (07:55)
[2023-01-05] MEDS ORDERED: METOCLOPRAMIDE HCL INJECTION 10 MG/2 ML VIAL IVPUSH ONE (07:55)
[2023-01-05] MEDS ORDERED: ACETAMINOPHEN INJECTION 100 ML IVPB ONE (07:56)
[2023-01-05 08:38] LABS: HEMATOCRIT 43.2 % (35.4-49); HEMOGLOBIN 14.4 G/dL (11.7-16.9); MCH 30.6 pg (25.7-33.7); MCHC 33.4 g/dl (32.0-35.9); MEAN CELL VOLUME 91.8 fl (80-96); MEAN PLT VOLUME 10.3 fl (7.5-11.1); PLATELET COUNT 236.4 10^3/uL (134-434); RBC 4.71 10^6/uL (4.00-5.60); RDW 13.4 % (11.9-15.9); WHITE BLOOD COUNT 8.3 10^3/uL (4.0-10.8)
[2023-01-05 09:19] LABS: ALBUMIN 4.5 g/dl (3.4-5.0); BILIRUBIN,TOTAL 0.5 mg/dl (0.2-1); BLOOD UREA NITROGEN 17.6 mg/dl (7-18); CALCIUM 11.8 mg/dl (8.5-10.1); CREATININE 1.1 mg/dl (0.6-1.3); POTASSIUM 4.3 mmol/L (3.5-5.1); SGOT/AST 21.516 U/L (15-37); SGPT/ALT 17.92 U/L (7-52); TOT PROT 6.9 g/dl (6.4-8.2)
[2023-01-05] MEDS ORDERED: HYDROmorphone HCl 2 MG/ML VIAL IVPB ONE (10:07)
[2023-01-05] MEDS ORDERED: HYDROmorphone HCL/PF 1 MG/ML VIAL ONE (10:18)
== END 2023-01-05 11:27 | disposition home or self-care (01) ==
LOC: FER 07:31
PROC: 3E033NZ Introduction of Analgesics, Hypnotics, Sedatives into Peripheral Vein, Percutaneous Approach (ICD-10-PCS; principal; 2023-01-05)
PROC: 3E033GC Introduction of Other Therapeutic Substance into Peripheral Vein, Percutaneous Approach (ICD-10-PCS; 2023-01-05)
PROC: 3E033GC Introduction of Other Therapeutic Substance into Peripheral Vein, Percutaneous Approach (ICD-10-PCS; 2023-01-05)
PROC: 3E0333Z Introduction of Anti-inflammatory into Peripheral Vein, Percutaneous Approach (ICD-10-PCS; 2023-01-05)
PROC: 3E033GC Introduction of Other Therapeutic Substance into Peripheral Vein, Percutaneous Approach (ICD-10-PCS; 2023-01-05)
PROC: 3E033GC Introduction of Other Therapeutic Substance into Peripheral Vein, Percutaneous Approach (ICD-10-PCS; 2023-01-05)
PROC: 3E0337Z Introduction of Electrolytic and Water Balance Substance into Peripheral Vein, Percutaneous Approach (ICD-10-PCS; 2023-01-05)
DX: G43.909 Migraine, unspecified, not intractable, without status migrainosus (principal); R51.9 Headache, unspecified; R11.2 Nausea with vomiting, unspecified; R19.7 Diarrhea, unspecified
CPT/HCPCS: 36415; 80053; 85027; 99284-25